=== PATIENT | male | born 1970 | race Asian ===

== ENCOUNTER 2019-03-01 22:00 | Emergency (ER) | payer OTHER ==
[~2019-03-01] VITALS: Ht 165.1 cm; Wt 95.3 kg
[~2019-03-01 22:00] MED LIST: ALLO300T2 PO; ASPI-1153 PO; CARV25TA55 PO; DIGO-31 PO; FURO-149 PO; LISI-600 PO; SIMV20TA2 PO; SPIR25TA6 PO; WARF2TAB2 PO
[2019-03-01 22:14] VITALS: BP_SYST 112
--- NOTE | 2019-03-01 22:23 | NUR ---
Pt placed to ER bed 06. Report given to GROVER Campbell.
--- NOTE | 2019-03-01 22:29 | NUR ---
ER Dr. España at bedside examining patient.
--- NOTE | 2019-03-01 22:29 | NUR ---
Pt complains of right hand pain and right foot pain s/p fall yesterday. Pt states he got out of the car and was walking, when he felt dizzy, tripped and fell, using right hand to catch call. Noted edema to right hand. Pt denies hitting head and losing consciousness. No other injuries/complaints per patient or noted.
--- NOTE | 2019-03-01 22:30 | NUR ---
Xray at bedside, pt tolerated well.
[2019-03-01] MEDS ORDERED: KETOROLAC TROMETHAMINE 60 MG/2 ML VIAL IM ONE (22:45)
--- NOTE | 2019-03-01 22:51 | NUR ---
medication was given, pt tolerated well. No adverse reaction, will continue to monitor.
[2019-03-01 23:36] VITALS: BP_SYST 115
--- NOTE | 2019-03-01 23:36 | NUR ---
Patient given written and verbal discharge instructions and verbalizes understanding. ER MD discussed with patient the results and treatment provided. Patient in stable condition. ID arm band removed. Rx of Motrin given. Patient educated on pain management and to follow up with PMD. Pain Scale 2. Opportunity for questions provided and answered. Medication side effect fact sheet provided.
== END 2019-03-01 23:36 | disposition home or self-care (01) ==
LOC: SED 22:00
DX: S63.501A Unspecified sprain of right wrist, initial encounter (principal); I11.0 Hypertensive heart disease with heart failure; I50.9 Heart failure, unspecified; I48.91 Unspecified atrial fibrillation; Z79.82 Long term (current) use of aspirin; Z79.899 Other long term (current) drug therapy; X58.XXXA Exposure to other specified factors, initial encounter; Y93.89 Activity, other specified; Y92.89 Other specified places as the place of occurrence of the external cause; Y99.8 Other external cause status
CPT/HCPCS: 29125; 73130; 73590; 96372; 99283; J1885